=== PATIENT | female | born 1985 | race Caucasian/White ===

== ENCOUNTER 2017-12-27 16:04 | Emergency (ER) | END 2017-12-27 19:20 | disposition home or self-care (01) ==

== ENCOUNTER 2018-09-01 10:30 | Emergency (ER) | payer MEDICAID ==
[~2018-09-01] VITALS: Ht 162.6 cm; Wt 60.2 kg
[~2018-09-01 10:30] MED LIST: CEPH-443 PO
[2018-09-01 10:57] VITALS: Ht 162.6 cm; Wt 60.2 kg
[2018-09-01] MEDS ORDERED: HYDR-4011 PO (13:25)
[2018-09-01] MEDS ORDERED: NAPR-985 PO (13:25)
[2018-09-01 13:37] VITALS: BP 119/75; PULSE 71; RESP 20
[2018-09-01] MEDS ORDERED: IBUPROFEN 800 MG TAB PO ONE (14:00)
--- NOTE | 2018-09-01 14:36 | ERD ---
ER Documentation Chief Complaint Chief Complaint Left pelvic pain x2 days, denies NVD and dysuria HPI 33-year-old female presenting with left pelvic pain x2 days. Patient states that she tenses. She states this feels similar to the pain. She denies any fevers. No pain with urination and has normal bowel movements. Eating josy lly. Denies medical problems. NKDA. Surgical history is pelvic surgery. She believes she had a partial oophorectomy. Social history smokes occasionally. Denies drug use. ROS All systems reviewed and are negative except as per history of present illness. Medications Home Meds Active Scripts Naproxen* (Naprosyn*) 500 Mg Tablet, 500 MG PO BID PRN for PAIN AND/OR INFLAMMATION, #30 TAB Prov:BECKI DODD PA-C 09/01/18 Hydrocodone/Acetaminophen ([place] 5-325 Tablet) 1 Each Tablet, 1 TAB PO Q6H PRN for PAIN, #7 TAB Prov:BECKI DODD PA-C 09/01/18 Cephalexin* (Keflex*) 500 Mg Capsule, 500 MG PO TID for 7 Days, CAP Prov:JULIÁN EDWARD MD 12/27/17 Allergies Allergies: Coded Allergies: No Known Allergy (Unverified , 12/27/17) PMhx/Soc Medical and Surgical Hx: pt denies Medical Hx, pt denies Surgical Hx Hx Alcohol Use: No Hx Substance Use: No Hx Tobacco Use: Yes Smoking Status: Light tobacco smoker FmHx Family History: No diabetes, No coronary disease, No other Physical Exam Vitals Vital Signs Date Temp Pulse Resp B/P (MAP) Pulse Ox O2 O2 Flow FiO2 Time Delivery Rate 09/01/18 98.7 71 20 119/75 98 Room Air 13:37 (90) 09/01/18 99.3 77 20 123/73 98 10:57 (90) Physical Exam GENERAL: The patient is well-appearing, well-nourished, in no acute distress HEENT: Atraumatic. Conjunctivae are pink. Pupils equal, round, and reactive to light. There is no scleral icterus. Tympanic membranes clear bilaterally. Oropharynx clear. NECK: C-spine is soft and supple. There is no meningismus. There is no cervical lymphadenopathy. CHEST: Clear to auscultation bilaterally. There are no rales, wheezes or rhonchi. HEART: Regular rate and rhythm. No murmurs, clicks, rubs or gallops. ABDOMEN: Normal active bowel sounds. No distention. No organomegaly. Tender to palpation to the left lower quadrant. BACK: No midline or flank tenderness. Result Diagram: 09/01/18 1134 09/01/18 1134 Results 24 hrs Laboratory Tests Test 09/01/18 11:34 09/01/18 11:35 09/01/18 11:43 White Blood Count 9.0 10^3/ul Red Blood Count 4.88 10^6/ul Hemoglobin 13.7 g/dl Hematocrit 42.7 % Mean Corpuscular Volume 87.5 fl Mean Corpuscular Hemoglobin 28.1 pg Mean Corpuscular 32.1 g/dl Hemoglobin Concent Red Cell Distribution Width 15.3 % Platelet Count 259 10^3/UL Mean Platelet Volume 11.0 fl Immature Granulocytes % 0.400 % Neutrophils % 68.9 % Lymphocytes % 21.7 % Monocytes % 7.9 % Eosinophils % 0.7 % Basophils % 0.4 % Nucleated Red Blood Cells % 0.0 /100WBC Immature Granulocytes # 0.040 10^3/ul Neutrophils # 6.2 10^3/ul Lymphocytes # 1.9 10^3/ul Monocytes # 0.7 10^3/ul Eosinophils # 0.1 10^3/ul Basophils # 0.0 10^3/ul Nucleated Red Blood Cells # 0.0 10^3/ul Urine Color YELLOW Urine Clarity SLIGHTLY CLOUDY Urine pH 8.0 Urine Specific [place] 1.028 Urine Ketones NEGATIVE mg/dL Urine Nitrite NEGATIVE mg/dL Urine Bilirubin NEGATIVE mg/dL Urine Urobilinogen NEGATIVE mg/dL Urine Leukocyte Esterase NEGATIVE Betzaida/ul Urine Microscopic RBC 11 /HPF Urine Microscopic WBC 1 /HPF Urine Squamous Epithelial Cells MODERATE /HPF Urine Mucus FEW /HPF Urine Hemoglobin NEGATIVE mg/dL Urine Glucose NEGATIVE mg/dL Urine Total Protein 1+ mg/dl Sodium Level 136 mmol/L Potassium Level 3.8 mmol/L Chloride Level 94 mmol/L Carbon Dioxide Level 34 mmol/L Anion Gap 8 Blood Urea Nitrogen 15 mg/dl Creatinine 0.84 mg/dl Est Glomerular Filtrat > 60 mL/min Rate mL/min Glucose Level 91 mg/dl Calcium Level 9.6 mg/dl Total Bilirubin 0.4 mg/dl Direct Bilirubin 0.00 mg/dl Indirect Bilirubin 0.4 mg/dl Aspartate Amino Transf (AST/SGOT) 28 IU/L Alanine 14 IU/L Aminotransferase (ALT/SGPT) Alkaline Phosphatase 78 IU/L Total Protein 8.5 g/dl Albumin 4.6 g/dl Globulin 3.90 g/dl Albumin/Globulin Ratio 1.17 Lipase 84 U/L POC Beta HCG, Qualitative NEGATIVE NEGATIVE Current Medications Medications Dose Sig/Caridad Start Time Status Last (Trade) Ordered Route PRN Stop Time Admin Dose Reason Admin Ibuprofen 800 mg ONCE ONCE 09/01/18 DC 09/01/18 (Motrin) PO 14:00 13:34 09/01/18 14:00 Procedures/MDM DIAGNOSTIC IMAGING REPORT Patient: OREN DOMÍNGUEZ : 1985 Age: 33 Sex: F MR #: [id number] DOS: 09/01/18 1119 Ordering MD: VANE DODD PA-C Location: [facility] Room/Bed: PROCEDURE: US Pelvis CLINICAL INDICATION: Abdominal pain, history of left oophorectomy per patient. TECHNIQUE: Transabdominal sonographic evaluation of the pelvis was performed. COMPARISON: None. FINDINGS: Uterus is anteverted and measures 8.3 x 4 x 4.5 cm. Endometrium measures 12 mm in thickness, within normal limits. No uterine masses are seen. Right ovary measures 2.9 x 2.1 x 1.6 cm. The left ovary is not visualized. There is a round complex-appearing lesion with multiple hypoechoic components in the region of the left adnexa without detectable internal vascular flow measuring up to 4.6 cm. There is no free pelvic fluid. IMPRESSION: 1. Normal sonographic examination of the uterus and right ovary. 2. Nonvisualization of the left ovary. History of left oophorectomy is provided by the patient. A complex mass measuring up to 4.6 cm with areas of hypoechogenicity and lack of detectable internal vascular flow is identified in the region of the left adnexa. This is incompletely evaluated. Recommend further evaluation with MRI of the pelvis without and with intravenous contrast. The findings and recommendations were discussed with Ms. Dodd, physician graduate assistant at 01:15 p.m. on 09/01/[address] Fraser. ER Course: I spoke with patient and she states her pain is similar to that of her previous ovarian cyst. She denies any vomiting or doubling over in pain. I discussed the patient case with Dr. Ayala as well given there is an MR recommended. Patient was felt to be stable at outpatient. I discussed this with patient and she understands the importance of following up outpatient. MDM: 33-year-old female presenting with left pelvic pain. Patient likely has ovarian cyst causing her pain. She is recommended to follow-up outpatient given there is an unidentified mass noted on the ultrasound. Patient is told to follow-up with PLANNING MANAGER within the next 1 to 2 days. Patient is told her systems change or worsen to return to ER. I do not feel there is concern for acute abdominal emergency at this time. Patient was requesting to leave at the time of my reevaluation she stated her symptoms had improved. Patient is encouraged to follow-up immediately with outpatient providers and she understood the importance. All questions answered at discharge Departure Diagnosis: Primary Impression: Pelvic pain Condition: Stable Patient Instructions: Pelvic Pain, Unknown Cause Referrals: [facility] YOU HAVE RECEIVED A MEDICAL SCREENING EXAM AND THE RESULTS INDICATE THAT YOU DO NOT HAVE A CONDITION THAT REQUIRES URGENT TREATMENT IN THE EMERGENCY DEPARTMENT. FURTHER EVALUATION AND TREATMENT OF YOUR CONDITION CAN WAIT UNTIL YOU ARE SEEN IN YOUR DOCTORS OFFICE WITHIN THE NEXT 1-2 DAYS. IT IS YOUR RESPONSIBILITY TO MAKE AN APPOINTMENT FOR FOLOW-UP CARE. IF YOU HAVE A PRIMARY DOCTOR --you should call your primary doctor and schedule an appointment IF YOU DO NOT HAVE A PRIMARY DOCTOR YOU CAN CALL OUR PHYSICIAN REFERRAL HOTLINE AT IF YOU CAN NOT AFFORD TO SEE A PHYSICIAN YOU CAN CHOSE FROM THE FOLLOWING [facility] [address] [facility] [address] [facility] [address] [facility] [address] [facility] [address] [facility] [facility]. [address] [place] [employer] [id number] [facility] [address] [place] [address] OFFICE FAX , [facility] [address] [place] [address] [address] [facility] [address] [place] [address] DR ELLIS, [facility] [address], [address], [place] [address] [address] GODOY [facility] [address] [place] [address] [facility] [address] [place] [address] [phone] [address] [facility] [id number] - [address] BRUNER SABA [address], [place] [address] DR HUERTA, [facility] [address] [facility]. [address], [place] [address] [address] CHE, [facility] [address] [place], [place] [id number] Additional Instructions: FOLLOW UP WITH YOUR PRIMARY CARE PHYSICIAN TOMORROW.Return to this facility if you are not improving as expected. BECKI DODD PA-C September 01, 2018 14:36
== END 2018-09-01 13:42 | disposition home or self-care (01) ==
LOC: FTE 10:30
DX: R10.2 Pelvic and perineal pain (principal); F17.210 Nicotine dependence, cigarettes, uncomplicated
CPT/HCPCS: 36415; 76830; 76856; 80053; 81001; 81025; 83690; 85025; Z7502; Z7610